=== PATIENT | female | born 1930 | race Caucasian/White ===

== ENCOUNTER 2017-09-13 17:48 | Emergency (ER) | payer OTHER ==
[~2017-09-13] VITALS: Ht 160 cm; Wt 38.3 kg
[~2017-09-13 17:48] MED LIST: ADVAIR 250/501 DISK IH; ALEVE220 MG PO; ASPIR 8181 M1 PO; AVELOX400 MG PO; Aspirin E.C. PO; BACTRIM,SEPT1 TABLET PO; BENADRYL25 MG PO; BOOST PLUS237 ML PO; CALCIUM; CEFUROXIME500 MG PO; CELEBREX100 MG PO; CIPRO500 MG PO; CLONAZEPAM0.25 MG PO; COLACE100 MG PO; COUMADIN2.5 MG PO; COUMADIN7.5 MG PO; DOXYCYCLINE HY100 MG PO; DUONEB 2.5-0.5 M3 ML AEROSOL; FLORASTOR250 MG PO; Flagyl PO; IRON; IRON325 M1 PO; IRON325 MG PO; LEVAQUIN750 MG PO; LEVOTHYROXINE100 MCG PO; LEVOTHYROXINE88 MCG PO; LEVOXYL50 MCG PO; LEVOXYL88 MCG PO; Levothroid,Synthroid PO; Levoxyl; MEGACE 40 MG40 MG/ML PO; MEGACE20 MG PO; METAMUCIL FIBE3.4 GM PO; METRONIDAZOLE500 MG PO; MIRALAX17 GM PO; MIRALAX255 GM PO; MIRTAZAPINE7.5 MG PO; NAPROXEN250 MG PO; NICOTROL INHALE10 MG IH; OSMOLITE1000 M1 PO; OXYCODONE HCL5 MG PO; PANTOPRAZOLE SO40 MG PO; PAXIL CR25 MG PO; PREDNISONE20 MG PO; PROBIOTIC1 EAC1 PO; PROTONIX40 MG PO; PROVENTIL,2.5 MG/3 M IH; ROXICODONE5 MG PO; SERTRALINE HCL25 MG PO; SPIRIVA; SPIRIVA1 INHALATI IH; SYNTHROID100 MCG PO; TESSALON PERLE100 MG PO; TRAMADOL HCL50 MG PO; ZITHROMAX Z-PA250 MG PO; ZOLOFT25 MG PO
[2017-09-13 18:05] LABS: HEMATOCRIT 34.2 % (36.0-46.0); MCH 29.4 PG (29.0-34.0); MCHC 32.2 G/DL (30.0-36.0); MCV 91.4 FL (83-99); PLATELET COUNT 188 K/uL (156-360); RBC DIS.WIDTH-CV 13.7 % (11.8-14.6); RBC DIS.WIDTH-SD 46.5 % (39-53); RED BLOOD COUNT 3.74 M/uL (3.80-5.20); WHITE BLOOD COUNT 8.2 K/uL (4.1-10.2)
[2017-09-13 18:18] LABS: CHLORIDE 106 mEq/L (99-109); POTASSIUM 3.8 mEq/L (3.7-5.4); SODIUM 143 mEq/L (136-147)
[2017-09-13 18:20] LABS: GLUCOSE 111 mg/dL (70-99)
[2017-09-13 18:24] LABS: CREATININE 1.2 mg/dL (0.6-1.3); GFR ESTIMATE (CALCULATED) 45 mL/min/
[2017-09-13 18:25] LABS: UREA NITROGEN (BUN) 21 mg/dL (9-23)
[2017-09-13 18:26] LABS: TROP-I INTERPRETATION NEGATIVE; TROPONIN-I < 0.01 ng/mL (0.0-0.30)
[2017-09-13] MEDS ORDERED: ZITHROMAX Z-PA250 MG PO (18:56)
[2017-09-13] MEDS ORDERED: DUONEB 2.5-0.5 M3 ML AEROSOL (18:56)
[2017-09-13 20:03] VITALS: BP 115/64
== END 2017-09-13 20:30 | disposition home or self-care (01) ==
LOC: EME 17:48
DX: J44.1 Chronic obstructive pulmonary disease with (acute) exacerbation (principal); J20.9 Acute bronchitis, unspecified; J44.0 Chronic obstructive pulmonary disease with (acute) lower respiratory infection; R91.1 Solitary pulmonary nodule; M48.54XA Collapsed vertebra, not elsewhere classified, thoracic region, initial encounter for fracture; Z99.81 Dependence on supplemental oxygen; Z86.718 Personal history of other venous thrombosis and embolism; Z87.891 Personal history of nicotine dependence; E03.9 Hypothyroidism, unspecified; K21.9 Gastro-esophageal reflux disease without esophagitis; F41.9 Anxiety disorder, unspecified; F32.9 Major depressive disorder, single episode, unspecified; Z87.440 Personal history of urinary (tract) infections; Z93.2 Ileostomy status; Z88.8 Allergy status to other drugs, medicaments and biological substances
CPT/HCPCS: 71046; 80048; 84484; 85027; 94640; 99281; 99284

== ENCOUNTER → 2018-02-01 | Outpatient (CLI) | payer OTHER ==
[~2018-02-01] MED LIST changes: +INCRUSE ELLI62.5 MCG IH; +XANAX0.25 MG PO
[2018-02-01 08:50] LABS: PTT 33.1 SEC (25-37)
== END | disposition home or self-care (01) ==
LOC: OPR 07:59 → EDSTATUS 09:00 → OPR 09:00
PROVIDERS: Internal Medicine
PROC: 0BDG4ZX Extraction of Left Upper Lung Lobe, Percutaneous Endoscopic Approach, Diagnostic (ICD-10-PCS; principal; 2018-02-01)
PROC: BB241ZZ Computerized Tomography (CT Scan) of Bilateral Lungs using Low Osmolar Contrast (ICD-10-PCS; principal; 2018-02-01)
DX: R91.1 Solitary pulmonary nodule (principal); J43.9 Emphysema, unspecified; E03.9 Hypothyroidism, unspecified; D64.9 Anemia, unspecified; K21.9 Gastro-esophageal reflux disease without esophagitis; F41.9 Anxiety disorder, unspecified; Z87.891 Personal history of nicotine dependence
CPT/HCPCS: 71045; 77012; 85610; 85730; 88305